=== PATIENT | male | born 1950 | race Caucasian/White ===

== ENCOUNTER 2019-12-16 20:03 | Emergency (ER) | payer MEDICARE, OTHER ==
[~2019-12-16] VITALS: Ht 170.2 cm; Wt 129.0 kg
[2019-12-16] MEDS ORDERED: LISI1TAB29 PO (20:31)
[2019-12-16] MEDS ORDERED: ATOR10TA87 PO (20:33)
[2019-12-16 20:39] LABS: BASOPHILS % (AUTO) 0.5 % (0-1); EOSINOPHILS # (AUTO) 0.1 X10'3 (0-0.9); EOSINOPHILS % (AUTO) 1.1 % (0-6); HEMATOCRIT 44.7 % (42.0-52.0); HEMOGLOBIN 15.3 g/dl (14.0-17.9); MEAN CORPUSCULAR HEMOGLOBIN 31.6 PG (27.0-31.0); MEAN CORPUSCULAR HGB CONC 34.2 g/dL (33.0-36.5); MEAN CORPUSCULAR VOLUME 92.3 FL (78-98); MONOCYTES # (AUTO) 0.8 X10'3 (0-0.9); MONOCYTES % (AUTO) 9.9 % (2-12); NEUTROPHILS # (AUTO) 5.6 X10'3 (1.8-7.7); NEUTROPHILS % (AUTO) 65.5 % (42-75); PLATELET COUNT 174 X10'3 (140-440); RED BLOOD COUNT 4.84 X10'6 (4.70-6.10); RED CELL DISTRIBUTION WIDTH 12.9 % (11.5-14.5); WHITE BLOOD COUNT 8.6 X10'3 (4.5-11.0)
[2019-12-16] MEDS ORDERED: aspirin 81mg tab.chew PO ONE (20:40)
[2019-12-16] MEDS ORDERED: ASPI81TA52 PO (20:44)
[2019-12-16 20:46] LABS: PARTIAL THROMBOPLASTIN TIME 25 SECONDS (22-32)
[2019-12-16 20:47] LABS: ALANINE AMINOTRANSFERASE 36 U/L (12-78); ALBUMIN 3.9 G/DL (3.4-5.0); ALBUMIN/GLOBULIN RATIO 1.3 (1.1-1.5); ALKALINE PHOSPHATASE 76 IU/L (46-116); ANION GAP 12 (8-16); ASPARTATE AMINO TRANSFERASE 39 U/L (10-37); BILIRUBIN,TOTAL 0.6 MG/DL (0.1-1.0); BLOOD UREA NITROGEN 26 MG/DL (7-18); BUN/CREATININE RATIO 21.7 (5.4-32.0); CALCIUM 8.5 MG/DL (8.5-10.1); CHLORIDE 108 MMOL/L (99-107); GLUCOSE 132 MG/DL (70-104); SODIUM 142 MMOL/L (135-145); TOTAL PROTEIN 6.9 G/DL (6.4-8.2); eGFR 60 ML/MIN
[2019-12-16 20:50] LABS: POTASSIUM 4.1 MMOL/L (3.5-5.1)
[2019-12-16 20:55] LABS: MAGNESIUM 1.8 MG/DL (1.5-2.4)
--- NOTE | 2019-12-16 21:42 | NUR ---
CHRISTINE VARGAS, TALKING WITH PT ABOUT AMA. DR. PANDYA IN TO TALK WITH PT ABOUT AMA DECISION. RN, CLARE, WITH PT NOW AND PT SIGNING AMA PAPER.
[2019-12-16 21:45] VITALS: BP 167/58
== END 2019-12-16 21:48 | disposition left against medical advice (07) ==
LOC: ER 20:04
DX: R07.89 Other chest pain (principal); M25.512 Pain in left shoulder; M25.511 Pain in right shoulder; I10 Essential (primary) hypertension; J44.9 Chronic obstructive pulmonary disease, unspecified; Z79.82 Long term (current) use of aspirin; Z79.899 Other long term (current) drug therapy
CPT/HCPCS: 36415; 71045; 80053; 83735; 83880; 84484; 85025; 85610; 85730; 93005; 99285

== ENCOUNTER 2020-09-10 16:43 | Emergency (ER) | payer MEDICARE, BC ==
[~2020-09-10] VITALS: Ht 170.2 cm; Wt 85.0 kg
[~2020-09-10 16:43] MED LIST: ASPI81TA52 PO; ATOR10TA87 PO; LISI1TAB29 PO
[2020-09-10] MEDS ORDERED: HYDROcodone/acetaminophen 5mg/325mg tablet PO ONE (20:25)
[2020-09-10] MEDS ORDERED: ondansetron 4mg rapidly disintigrating tab PO ONE (20:25)
[2020-09-10] MEDS ORDERED: ketorolac trometh inj. 60 MG/2 ML VIAL IM ONE (20:25)
[2020-09-10 20:36] LABS: BASOPHILS % (AUTO) 0.3 % (0-1); EOSINOPHILS # (AUTO) 0.1 X10'3 (0-0.9); EOSINOPHILS % (AUTO) 1.5 % (0-6); HEMATOCRIT 49.3 % (42.0-52.0); LYMPHOCYTES # (AUTO) 2.1 X10'3 (1.1-4.8); MEAN CORPUSCULAR HEMOGLOBIN 31.9 PG (27.0-31.0); MEAN CORPUSCULAR HGB CONC 34.5 g/dL (33.0-36.5); MEAN CORPUSCULAR VOLUME 92.4 FL (78-98); MEAN PLATELET VOLUME 7.4 FL (7.4-10.4); MONOCYTES # (AUTO) 0.7 X10'3 (0-0.9); MONOCYTES % (AUTO) 8.2 % (2-12); NEUTROPHILS # (AUTO) 6.1 X10'3 (1.8-7.7); PLATELET COUNT 193 X10'3 (140-440); RED BLOOD COUNT 5.34 X10'6 (4.70-6.10); RED CELL DISTRIBUTION WIDTH 13.2 % (11.5-14.5); WHITE BLOOD COUNT 9.1 X10'3 (4.5-11.0)
[2020-09-10 20:38] LABS: PARTIAL THROMBOPLASTIN TIME 27 SECONDS (22-32)
[2020-09-10 20:40] LABS: ALANINE AMINOTRANSFERASE 43 U/L (12-78); ALBUMIN 4.3 G/DL (3.4-5.0); ALBUMIN/GLOBULIN RATIO 1.3 (1.1-1.5); ALKALINE PHOSPHATASE 77 IU/L (46-116); ANION GAP 8 (8-16); ASPARTATE AMINO TRANSFERASE 42 U/L (10-37); BILIRUBIN,TOTAL 0.5 MG/DL (0.1-1.0); BLOOD UREA NITROGEN 22 MG/DL (7-18); BUN/CREATININE RATIO 19.1 (5.4-32.0); CALCIUM 9.2 MG/DL (8.5-10.1); CHLORIDE 103 MMOL/L (99-107); CREATININE 1.15 MG/DL (0.60-1.10); GLUCOSE 108 MG/DL (70-104); POTASSIUM 4.3 MMOL/L (3.5-5.1); SODIUM 139 MMOL/L (135-145); TOTAL CARBON DIOXIDE 28.4 MMOL/L (24-32); TOTAL PROTEIN 7.7 G/DL (6.4-8.2); eGFR 63 ML/MIN
[2020-09-10 20:48] LABS: CREATINE KINASE 657 U/L (39-308)
--- NOTE | 2020-09-10 21:07 | NUR ---
VASCULAR US AT BEDSIDE NOW. PT GIVEN TORODOL 30 MG IM. PT REQUESTT Marianela ROYAL ON NORCO, DID TAKE SOME AT HOME EARLIER WITH NO RELIEF OF SYMPTOMS. ALSO NOT NAUSEAUS , DECLINED ZOFRAN. PT IS POLITE AND COOPERATIVE. VSS
[2020-09-10 21:14] VITALS: BP 131/49
[2020-09-10] MEDS ORDERED: IBUP-1984 PO (21:52)
[2020-09-10] MEDS ORDERED: HYDR-3965 PO (21:52)
[2020-09-10] MEDS ORDERED: orphenadrine citrate 60mg/2ml inj. IM ONE (21:55)
[2020-09-10] MEDS ORDERED: morphine 4 MG/ML inj SYRINge IV ONE (22:00)
--- NOTE | 2020-09-10 22:04 | NUR ---
DR. GRAFF TALKING WITH PT ABOUT DC INSTRUCTIONS. MD ORDERING MORPHINE FOR HIM HE REPORTS PAIN NOW IMPROVED ONCE HIS IS UP AND WALKING NOW. MD UNAWARE THAT PT REFUSED THE NORCO EARLIER. HE REPORTS OK TO GIVE PT THE MMORPHINE OR THE NORCOS BEFORE DC. ALSO, NORFLEX ORDERED. PT REPORTS HE WOULD PREFER TO TRY THE MORPHINE.
== END 2020-09-10 22:50 | disposition home or self-care (01) ==
LOC: ER 16:43
DX: M79.605 Pain in left leg (principal); I10 Essential (primary) hypertension; J44.9 Chronic obstructive pulmonary disease, unspecified; Z87.01 Personal history of pneumonia (recurrent); Z79.82 Long term (current) use of aspirin; Z79.899 Other long term (current) drug therapy
CPT/HCPCS: 36415; 80053; 82550; 83880; 84484; 85025; 85610; 85730; 93971; 96372; 96374; 99284; J1885; J2270; J2360

== ENCOUNTER 2024-09-01 10:52 | Emergency (ER) | payer MEDICARE, BC ==
[~2024-09-01] VITALS: Ht 170.2 cm; Wt 127.0 kg
[~2024-09-01 10:52] MED LIST changes: -LISI1TAB29 PO; +LISI1TAB53 PO
[2024-09-01 11:05] VITALS: BP 142/73; PULSE 66; RESP 16; TEMP 99.3; O2SAT 95
[2024-09-01] MEDS: cephalexin 250mg capsule PO ONE (12:50)
[2024-09-01] MEDS: sulfamethoxazole/trimethoprim DS (800/160mg) tablet PO ONE (12:50)
[2024-09-01] MEDS ORDERED: CEPH-585 PO (12:52)
[2024-09-01] MEDS ORDERED: SULF1TAB49 PO (12:52)
[2024-09-01] MEDS: TETanus/Pertussis (Acell)/Diphther VAC/PF (Tdap-Adult) 0.5ml syringe IMVAC ONE (12:52)
== END 2024-09-01 12:55 | disposition home or self-care (01) ==
LOC: ER 10:53
DX: L03.113 Cellulitis of right upper limb (principal); L02.511 Cutaneous abscess of right hand; I10 Essential (primary) hypertension; J45.909 Unspecified asthma, uncomplicated; J44.9 Chronic obstructive pulmonary disease, unspecified; Z79.82 Long term (current) use of aspirin; Z79.899 Other long term (current) drug therapy; Z28.9 Immunization not carried out for unspecified reason
CPT/HCPCS: 90715; 99283; G0008; 90471